=== PATIENT | male | born 1980 | race African-American/Black ===

== ENCOUNTER 2017-08-29 19:57 | Emergency (ER) | payer OTHER ==
[~2017-08-29] VITALS: Ht 182.9 cm; Wt 84.3 kg
[2017-08-29 20:08] VITALS: BP 140/76
== END 2017-08-29 20:53 | disposition home or self-care (01) ==
LOC: EME 19:57
DX: S01.80XA Unspecified open wound of other part of head, initial encounter (principal); Y00.XXXA Assault by blunt object, initial encounter; F17.200 Nicotine dependence, unspecified, uncomplicated
CPT/HCPCS: 99281; 99283